=== PATIENT | female | born 1975 | race Caucasian/White ===

== ENCOUNTER 2020-07-29 17:41 | Emergency (ER) | payer SELFPAY ==
[~2020-07-29] VITALS: Ht 175.3 cm; Wt 81.6 kg
[2020-07-29] MEDS ORDERED: AMPICILLIN SOD/SULBACTAM 3GM 100 ML IV STA (17:50)
[2020-07-29] MEDS ORDERED: ONDANSETRON HCL INJ 2MG/ML 2ML 2 MG/ML VIAL IV STA (17:53)
[2020-07-29] MEDS ORDERED: SODIUM CHLORIDE 0.9% 1000ML 1,000 ML IV STA (17:53)
[2020-07-29] MEDS ORDERED: MORPHINE SULFATE INJ 4 MG/ML INJ 1ML IV ONE (18:00)
[2020-07-29 18:14] LABS: BASOPHILS # (AUTO) 0.1 (0.0-0.1); BASOPHILS % 0.5 % (0.0-1.0); EOSINOPHILS # (AUTO) 0.1 (0.0-0.4); EOSINOPHILS % 0.9 % (0.0-6.0); HEMATOCRIT 35.9 % (34.2-44.1); HEMOGLOBIN 11.1 g/dL (12.0-16.0); LYMPHOCYTES # (AUTO) 2.4 (1.0-3.2); LYMPHOCYTES % 20.7 % (18.0-39.1); MEAN CORPUSCULAR HEMOGLOBIN 19.3 pg (28-32); MEAN CORPUSCULAR HGB CONC 30.9 g/dL (31-35); MEAN CORPUSCULAR VOLUME 62.5 fL (81-99); MONOCYTES # (AUTO) 0.7 (0.2-0.8); MONOCYTES % 5.6 % (4.4-11.3); NEUTROPHILS # (AUTO) 8.3 (2.1-6.9); NEUTROPHILS % 71.4 % (38.7-80.0); PLATELET COUNT 274 x10e3/uL (140-360); RED BLOOD COUNT 5.74 x10e6/uL (3.6-5.1); RED CELL DISTRIBUTION WIDTH 17.3 % (11.7-14.4)
[2020-07-29 18:24] LABS: ALANINE AMINOTRANSFERASE 26 IU/L (0-55); ALBUMIN 3.8 g/dL (3.5-5.0); ALBUMIN/GLOBULIN RATIO 0.9 (0.8-2.0); ALKALINE PHOSPHATASE 113 IU/L (40-150); BLOOD UREA NITROGEN 6 mg/dL (7-26); BUN/CREATININE RATIO 7 (6-25); CALCIUM 9.3 mg/dL (8.4-10.2); CARBON DIOXIDE 22 mmol/L (22-29); CHLORIDE 106 mmol/L (98-107); CREATININE, SERUM 0.85 mg/dL (0.57-1.11); EST GLOMERULAR FILTRATION RATE > 60 ML/MIN (60-); GLUCOSE 126 mg/dL (74-118); SODIUM 141 mmol/L (136-145)
[2020-07-29] MEDS ORDERED: SODIUM CHLORIDE 0.9% 50ML 50 ML ONE (19:28)
[2020-07-29] MEDS ORDERED: IOPAMIDOL 370 MG/ML 200 ML INFUS..BTL INJ ONE (19:29)
[2020-07-29] MEDS ORDERED: AUGMENTIN 875-1 EACH PO (20:11)
[2020-07-29] MEDS ORDERED: ULTRAM50 MG PO (20:11)
[2020-07-29] MEDS ORDERED: HYDROCODONE/APAP 10MG-325MG TAB PO ONE (20:30)
== END 2020-07-29 20:28 | disposition home or self-care (01) ==
LOC: ER 17:50
DX: K02.9 Dental caries, unspecified (principal); F17.210 Nicotine dependence, cigarettes, uncomplicated
CPT/HCPCS: 36415; 70487; 70491; 80053; 84702; 85025; 99284; J0295; J2270; J2405; J7030; Q9967